=== PATIENT | male | born 2000 | race Caucasian/White ===

== ENCOUNTER 2019-07-07 15:02 | Emergency (ER) | payer OTHER, SELFPAY ==
--- NOTE | ~2019-07-07 | CT_ITS ---
EXAMINATION: CT abdomen pelvis w con INDICATION: Nausea, vomiting, diarrhea TECHNIQUE: Computed tomographic images of the abdomen and pelvis were obtained after the administrati on of 100 cc of Omnipaque 350 intravenous contrast. The dose-length product (DLP) was 183.48 mGy-cm. Automated exposure control and iterative reconstruction technique were employed. COMPARISON: None available FINDINGS: The lung bases are clear. The heart size is normal. The liver, spleen, pancreas, gallbladde r, and adrenal glands are normal. The kidneys are unremarkable. There is mild diffuse wall thickening of the colon and several small bowel loops. There is also mild wall thickening of the stomach. Liqui d stool is seen in the colon to the level of the rectum. The appendix is normal. There is no free int raperitoneal gas or evidence of bowel obstruction. No pathologically enlarged abdominal or pelvic lym ph nodes are identified. IMPRESSION: 1. Mild wall thickening involving the stomach, several loops of small bowel, as well as the colon wit h liquid stool to the level of the rectum. Findings are suggestive of gastroenteritis. Reviewed, dictated and finalized at location A. IMPRESSION: 1. Mild wall thickening involving the stomach, several loops of small bowel, as well as the colon with liquid stool to the level of the rectum. Findings are s uggestive of gastroenteritis.
[2019-07-07 15:09] VITALS: BP 136/95; PULSE 65; RESP 16; TEMP 36.4; O2SAT 100
[2019-07-07] MEDS: SODIUM CHLORIDE 0.9% IV 1,000 ML 999 ML IV CONT (15:24)
[2019-07-07] MEDS: FAMOTIDINE 20 MG/2 ML VIAL IV PUSH (15:24)
[2019-07-07] MEDS: ONDANSETRON INJ 4 MG/2 ML VIAL IV PUSH ×2 (15:24→17:27)
[2019-07-07 15:26] VITALS: BP 128/77; PULSE 67
[2019-07-07 15:26] LABS: Basophils Absolute Auto 0.1 K/mm3 (0.0-0.1); Basophils Percent Auto 0.3 % (0.2-1.2); Hematocrit 48.9 % (42.0-52.0); Hemoglobin 16.4 g/dL (14.0-18.0); Immature Granulocyte Absolute 0.07 K/mm3 (0.00-0.031); Immature Granulocyte Percent A 0.3 % (0-0.5); Lymphocytes Absolute Auto 1.26 K/mm3 (0.9-3.2); Mean Corpuscular HGB Conc 33.5 g/dl (32-36); Mean Corpuscular Hemoglobin 28.8 pg (26-34); Mean Corpuscular Volume 85.9 fl (80-100); Monocytes Absolute Auto 0.9 K/mm3 (0.1-0.6); Monocytes Percent Auto 4.4 % (2.6-8.5); Neutrophils Absolute Auto 18.7 K/mm3 (1.3-6.7); Platelet Count Result 323 k/mm3 (150-375); Red Blood Count 5.69 M/mm3 (4.6-6.20); Red Cell Distribution Width 11.5 % (11.5-14.5)
[2019-07-07 15:27] VITALS: BP 126/103; PULSE 70
[2019-07-07 15:28] VITALS: BP 130/83; PULSE 78
[2019-07-07 15:40] LABS: Alanine Aminotransferase 20 U/L (4-50); Albumin Level 5.6 g/dL (3.5-5.1); Alkaline Phosphatase 128 U/L (38-126); Aspartate Amino Transferase 32 U/L (17-59); Bilirubin,Total 1.4 mg/dL (0.2-1.3); Blood Urea Nitrogen 16 mg/dL (9-20); Calcium 9.9 mg/dL (8.4-10.2); Carbon Dioxide 23 mmol/L (22-30); Chloride 100 mmol/L (98-107); Estimated CRCL calculation 92 ml/min; Estimated Glomerular Filt Rate > 60; Glucose 149 mg/dL (75-110); Lactic Acid Reflex 3.7 mmol/L (0.7-2.1); Lipase 36 U/L (23-300); Sodium 139 mmol/L (137-145)
--- NOTE | 2019-07-07 16:01 | PC.NURSE ---
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 Cerna he wanted the UA cancelled.
[2019-07-07] MEDS: LACTATED RINGERS 1,000 ML 999 ML IV CONT ×2 (16:13→17:27)
--- NOTE | 2019-07-07 16:14 | PC.NURSE ---
Per EDP via verbal order readback give LR Bolus at 999mls/hr instead of 150mls/hr
--- NOTE | 2019-07-07 16:57 | ED.GENADULT ---
HPI - General Adult General Chief complaint: Nausea/Vomiting/Diarrhea <Won Aguayo PA-C - Last Filed: 07/07/19 19:17> Stated complaint: Emesis <Won Aguayo PA-C - Last Filed: 07/07/19 19:17> Time Seen by Provider: 07/07/19 15:05 <Won Aguayo PA-C - Last Filed: 07/07/19 19:17> Source: patient <Won Aguayo PA-C - Last Filed: 07/07/19 19:17> Mode of arrival: ambulatory <Won Aguayo PA-C - Last Filed: 07/07/19 19:17> Limitations: no limitations <Won Aguayo PA-C - Last Filed: 07/07/19 19:17> History of Present Illness HPI narrative: Patient is a 19-year-old male who presents to emergency department for evaluation of nausea vomiting diarrhea that began this morning noting multiple episodes of each associated periumbilical abdominal discomfort. Patient notes chills and sweats and inability to tolerate p.o. intake. Was referred from urgent care. On arrival patient in the room is ill-appearing but in no distress. Patient denies hematemesis rectal bleeding or melena does not take anything for his symptoms <Won Aguayo PA-C - Last Filed: 07/07/19 19:17> Related Data Allergies/adverse reactions: Allergies Allergy/AdvReac Type Severity Reaction Status Date / Time amoxicillin Allergy Unknown Verified 07/07/19 15:15 <Won Aguayo PA-C - Last Filed: 07/07/19 19:17> Review of Systems Review of Systems: All systems reviewed & are unremarkable except as noted in HPI and below <Won Aguayo PA-C - Last Filed: 07/07/19 19:17> PMFSH Social History Social History: Social History Gender identity (if verbalized by the patient): Male <Won Aguayo PA-C - Last Filed: 07/07/19 19:17> Exam Narrative: Exam Narrative: GENERAL: Ill appearing, well-nourished, and in no acute distress. HEAD: Normocephalic, atraumatic. EYES: PERRLA and EOMI. ENT: Nares clear, no rhinorrhea or epistaxis. Mucous membranes moist. CHEST: Clear to auscultation. No respiratory distress. No wheezes rales or rhonchi HEART: Regular rate and rhythm. No murmur heard. Normal peripheral pulses. ABDOMEN: Soft, periumbilical right lower quadrant tenderness to palpation, nondistended EXTREMITIES: Normal range of motion. No edema. SKIN: Warm, dry, no rash. NEURO: No focal deficits. Alert and oriented x3. Cranial nerves II through XII grossly intact PSYCH: Normal mood and affect. <Won Aguayo PA-C - Last Filed: 07/07/19 19:17> Course Course Emergency Course: Patient in the room in no distress feeling better at this time was hydrated and given medications in the emergency department with improvement. Patient's lactic has normalized likely suggesting dehydration patient feeling much better at this time in no distress <Won Aguayo PA-C - Last Filed: 07/07/19 19:17> Vital Signs Vital signs: Vital Signs Temperature 36.4 C 07/07/19 15:09 Pulse Rate 65 07/07/19 15:09 Respiratory Rate 16 07/07/19 15:09 Blood Pressure 136/95 H 07/07/19 15:09 Pulse Oximetry 100 07/07/19 15:09 Temperature 36.4 C 07/07/19 15:09 Pulse Rate 78 07/07/19 15:28 Respiratory Rate 16 07/07/19 15:09 Blood Pressure 130/83 07/07/19 15:28 Pulse Oximetry 100 07/07/19 15:09 <PRAMOD Miller Last Filed: 07/07/19 19:17> Vital Signs Temperature 36.4 C 07/07/19 15:09 Pulse Rate 65 07/07/19 15:09 Respiratory Rate 16 07/07/19 15:09 Blood Pressure 136/95 H 07/07/19 15:09 Pulse Oximetry 100 07/07/19 15:09 Temperature 36.4 C 07/07/19 15:09 Pulse Rate 78 07/07/19 15:28 Respiratory Rate 16 07/07/19 15:09 Blood Pressure 130/83 07/07/19 15:28 Pulse Oximetry 100 07/07/19 15:09 <Angel Cerna MD - Last Filed: 07/07/19 23:06> Medical Decision Making MDM Narrative Medical decision making narrative: Patient in the room at this daniel
[2019-07-07 18:03] LABS: Add Urine Microscopic? YES; Appearance Urine Clear (Clear); Bacteria Urine Trace /hpf; Bilirubin Urine Negative (Negative); Blood Urine 2+ (Negative); Color Urine Amber (Yellow); Glucose Urine UA 1+ mg/dL (Negative); Ketones Urine 2+ mg/dL (Negative); Leukocyte Esterase Ur Negative LEU/UL (Negative); Mucus Urine Heavy /lpf; Nitrate Urine Negative (Negative); Protein Urine 2+ mg/dL (Negative); Urobilinogen Urine Negative mg/dL (<2.0)
[2019-07-07 18:04] LABS: Specific Grav Ur 1.034 (1.001-1.035)
[2019-07-07 18:23] LABS: Reflex Lactic Acid Yes or No Add Lactic
[2019-07-07 19:12] LABS: Lactic Acid 1.6 mmol/L (0.7-2.1)
== END 2019-07-07 20:11 | disposition home or self-care (01) ==
PROVIDERS: Emergency Medicine Emergency Medical Services; Emergency Provider Emergency Medicine
DX: R10.33 Periumbilical pain (principal)
CPT/HCPCS: 36415; 74177; 80053; 81001; 83605; 83690; 85025; 87081; 87086; 87804; 87880; 96361; 96374; 96375; 96376; 99284; J2405; J7030; J7120; Q9967